=== PATIENT | female | born 1955 | race African-American/Black ===

== ENCOUNTER → 2019-08-10 | Outpatient (CLI) | payer MEDICARE ==
--- NOTE | 2019-08-11 00:09 | RAD ---
CHEST PA LATERAL History: Heart failure. Reduced ejection fraction. Comparison: April 09, 2011 Findings: Patchy left basilar opacity. No pleural effusion. Cardiomegaly. Prior median sternotomy and valve replacement. Left-sided pacemaker/ICD. No pneumothorax. Elevation of the right hemidiaphragm. Surgical clips right upper quadrant. Impression: 1. Patchy left basilar opacity, may represent atelectasis or consolidation. Recommend follow-up. Electronically signed by: Ochoa Diaz DO (08/11/2019 12:05 AM) [id number]
== END | disposition home or self-care (01) ==
LOC: RAD 17:31
PROVIDERS: ATTEND Internal Medicine Cardiovascular Disease
DX: I51.7 Cardiomegaly (principal); I50.9 Heart failure, unspecified
CPT/HCPCS: 71046